=== PATIENT | female | born 1960 | race Caucasian/White ===

== ENCOUNTER 2022-09-30 14:44 | Emergency (ER) | payer OTHER, SELFPAY ==
[2022-09-30 14:49] VITALS: BP 198/86; PULSE 74; RESP 16; TEMP 35.8; O2SAT 99; BMI 32.4
[2022-09-30 15:11] LABS: Add Manual Diff / Slide Review NO; Basophils Absolute Auto 0 /uL (0-100); Basophils Percent Auto 0.2 % (0-2); Eosinophils Absolute Auto 100 /uL (0-450); Eosinophils Percent Auto 1.2 % (2-4); Hematocrit 41.1 % (36-46); Hemoglobin 13.9 g/dL (12.0-16.0); Lymphocytes Absolute Auto 1100 /uL (1100-4500); Mean Corpuscular HGB Conc 33.7 % (30-36); Mean Corpuscular Hemoglobin 30.7 PG (26-34); Mean Corpuscular Volume 91.3 fL (80-100); Monocytes Absolute Auto 400 /uL (0-900); Monocytes Percent Auto 6.1 % (3-14); Neutrophils Absolute Auto 5300 /uL (1500-7000); Neutrophils Percent Auto 76.5 % (50-75); Platelet Count 241 X10^3/uL (150-400); Red Blood Cell Count 4.51 X10^6/uL (4.0-5.2); White Blood Cell Count 6.9 X10^3/uL (4.5-11.0)
[2022-09-30 15:18] LABS: Alanine Aminotransferase 39 IU/L (<35); Albumin 4.3 g/dL (3.5-5.0); Albumin Globulin Ratio 1.2 (1.0-2.8); Alkaline Phosphatase 69 U/L (38-126); Aspartate Aminotransferase 38 IU/L (14-36); BUN Creatinine Ratio 30.2 (6-22); Bilirubin Total 0.5 mg/dL (0.2-1.3); Blood Urea Nitrogen 19 mg/dL (7-17); Calcium 9.4 mg/dL (8.4-10.2); Carbon Dioxide 30 mmol/L (22-32); Chloride 103 mmol/L (98-107); Estimated Glomerular Filt Rate > 60 mL/min (>60); Globulin 3.6 g/dL (1.7-4.1); Glucose 123 mg/dL (80-110); HEMOLYSIS < 15 (0-50); Lipase 101 U/L (23-300); Potassium 3.8 mmol/L (3.4-5.1); Sodium 139 mmol/L (137-145); Total Protein 7.9 g/dL (6.3-8.2)
[2022-09-30 15:24] LABS: Bacteria Urine Moderate (10-30); Mucus Urine 2+ (Negative); RBC Urine 10-30/HPF (0-5/HPF); WBC Urine 10-30/HPF (0-5/HPF)
--- NOTE | 2022-09-30 16:18 | DI.CT.S_ITS ---
PROCEDURE: CT ABDOMEN PELVIS WO CON INDICATIONS: LT renal colic vs ureteral obstruction vs cystitis/pyelo TECHNIQUE: Axial sections were acquired from the lung bases to the pubic symphysis. Coronal and sagittal reformats were performed. For radiation dose reduction, the following was used: automated exposure control, adjustment of mA and/or kV according to patient size. COMPARISON: None. FINDINGS: Image quality: Excellent. Lung bases: Unremarkable. A small hiatal hernia is incidentally noted. Heart: No significant findings. A small pericardial effusion is seen. URINARY: Right Kidney: No angel hydronephrosis is seen. Within the right renal pelvis there is a 9 mm stone measuring 450 Hounsfield units, which is nonobstructing at this time. Additional smaller stones can be seen within the right kidney. Right Ureter: No hydroureter. Left Kidney: Within the left renal pelvis, there is a large 18 mm stone that measures 1100 Hounsfield units, with mild associated hydronephrosis. Additional smaller left-sided kidney stones are seen, including a 6 mm stone that measures 650 Hounsfield units. Left Ureter: No hydroureter. Bladder: Normal wall thickness. No stones. ABDOMEN: Liver: Unremarkable. Gallbladder: Unremarkable. Biliary ducts: Unremarkable. Pancreas: Unremarkable. Spleen: Unremarkable. Adrenal Glands: Unremarkable. Stomach and Bowel: Stomach, small bowel loops, and colon are unremarkable. Colonic diverticulosis is seen, without findings of active diverticulitis. Peritoneum: No abnormal intraperitoneal fluid. No free air. Ventral Wall: No hernia. Abdominal Nodes: No enlarged retroperitoneal or mesenteric lymph nodes. Vessels: Aorta and inferior vena cava are normal in size. PELVIS: Pelvic Organs: The uterus appears normal for age. No adnexal masses are seen. Pelvic Nodes: Unremarkable. Miscellaneous: No inguinal hernias are seen. Bones: Mild dextroconvex scoliotic curvature is seen. Degenerative changes are seen throughout, which are worst involving the lumbar spine. IMPRESSION: There is an 18 mm stone seen within the left renal pelvis, which is believed to be partially obstructing, with mild left-sided hydronephrosis. Nonobstructing bilateral kidney stones are seen, including a 9 mm stone within the right renal pelvis. Additional findings: Small pericardial effusion Small hiatal hernia Diverticulosis, without active diverticulitis Dextroconvex scoliotic curvature Lumbar spine degenerative change Dictated by: Dougie Perkins M.D. on 09/30/2022 at 16:03 Approved by: Dougie Perkins M.D. on 09/30/2022 at 16:06
--- NOTE | 2022-09-30 16:38 | ED.ABDPAIN ---
HPI - Abdominal Pain <DEREK St - Last Filed: 09/30/22 17:35> General Chief Complaint: Abdominal Pain Stated Complaint: severe pain in abd throught lt the side Time Seen by Provider: 09/30/22 16:10 Mode of arrival: Family Vehicle History of Present Illness HPI narrative: This is a 62-year-old female presents to the emergency department complaining of left-sided pelvic and flank pain which has come and gone over the last year but has been persistent. She states over the last 2 days has been worse than usual and she thinks she is noticed blood in her urine. She has a history of kidney stones, states it has been multiple years since she is had 1. Does not have a urologist. She denies fever chills but states that she has not felt great and had worsening pain. Related Data Home Medications Medication Instructions Recorded Confirmed rosuvastatin PO 10/08/22 10/08/22 Previous Rx's Medication Instructions Recorded ciprofloxacin HCl 500 mg tablet 500 mg PO BID 10 days #20 tabs 09/30/22 (Cipro) ibuprofen 600 mg tablet 600 mg PO Q6H PRN fever or pain 09/30/22 #30 tabs Allergies Allergy/AdvReac Type Severity Reaction Status Date / Time No Known Drug Allergies Allergy Verified 10/08/22 13:44 Patient History <DEREK St - Last Filed: 09/30/22 17:35> Family History (Updated 10/08/22 @ 13:50 by Citlalli Estrella LPN) Grandmother Cancer Mother Diabetes mellitus Inflammatory bowel disease Father Hyperlipidemia Hypertension Social History (Updated 10/08/22 @ 13:52 by Citlalli Estrella LPN) marital status: number of children: 0 Smoking Status: Never smoker alcohol intake: never caffeine: Yes Type(s) of exercise: walking and swimming frequency: 1-2 times per week Smoking Status: Never smoker Substance Use Type: does not use Exam <DEREK St - Last Filed: 09/30/22 17:35> Narrative Exam Narrative: Reviewed vitals signs and nursing notes. General: cooperative, comfortable, in no acute distress, well groomed HEENT: symmetrical facial expressions, moist mucous membranes Cardiovascular: regular rate and rhythm, no peripheral edema, warm extremities, hypertensive Respiratory: normal effort, able to speak in complete sentences, without wheezing, stridor, or abnormal breath sounds. No retractions or tachypnea. GI: abdomen soft, nontender to palpation, nondistended, without masses, rebound tenderness or exquisite tenderness with exam. Left inguinal tenderness to palpation no CVAT bilaterally MSK: moves all extremities, neurovascularly intact, no weakness, normal tone Skin: brisk capillary refill, without pallor or erythema Neuro: normal speech and cognition, A&O x3, ambulatory, clear speech Psych: mental status is grossly normal, congruent mood, normal affect, pleasant and cooperative Initial Vital Signs Initial Vital Signs: Vital Signs Temperature 96.4 F L 09/30/22 14:49 Pulse Rate 74 09/30/22 14:49 Respiratory Rate 16 09/30/22 14:49 Blood Pressure 198/86 H 09/30/22 14:49 Pulse Oximetry 99 09/30/22 14:49 Oxygen Delivery Method 09/30/22 14:49 <Mikayla Wynn DO - Last Filed: 10/09/22 03:33> Initial Vital Signs Initial Vital Signs: Vital Signs Temperature 96.4 F L 09/30/22 14:49 Pulse Rate 74 09/30/22 14:49 Respiratory Rate 16 09/30/22 14:49 Blood Pressure 198/86 H 09/30/22 14:49 Pulse Oximetry 99 09/30/22 14:49 Oxygen Delivery Method 09/30/22 14:49 Course <[address]EREK St - Last Filed: 09/30/22 17:35> Orders Ordered: Discontinued Medications Ceftriaxone Sodium 1,000 mg/ (Sodium Chloride) 100 mls @ 200 mls/hr IV NOW ONE Stop: 09/30/22 16:58 Last Infusion: 09/30/22 17:30 Dose: 0 mls/hr Documented By: Admin: 09/30/22 17:04 Dose: 200 mls/hr Documented By: LENIN Ketorolac Tromethamine (Ketorolac 10 Mg Tablet) 10 mg PO NOW ONE Stop: 09/30/22 16:20 Last Admin: 09/30/22 16:59 Dose: 10 mg Documented By: ANTHONY Ondansetron HCl (Ondansetron 4 Mg Odt) 4 mg PO NOW PRN PRN Reason: Nausea And Vomiting Last Admin: 09/30/22 17:00 Dose: 4 mg Documented By: ANTHONY Ondansetron HCl (Ondansetron 4 Mg/2 Ml Inj) 4 mg IV NOW PRN PRN Reason: Nausea And Vomiting Phenazopyridine HCl (Phenazopyridine 100 Mg Tablet) 200 mg PO NOW ONE Stop: 09/30/22 16:20 Last Admin: 09/30/22 16:59 Dose: 200 mg Documented By: ANTHONY Trimethoprim/Sulfamethoxazole (Trimeth/Sulfa 160/800 (Ds) Tablet) 1 tab PO NOW ONE Stop: 09/30/22 16:20 Last Admin: 09/30/22 16:59 Dose: 1 tab Documented By: ANTHONY Vital Signs Vital signs: Vital Signs - 8 hr 09/30/22 14:49 09/30/22 17:06 Temperature 96.4 F L 98 F Pulse Rate 74 84 Respiratory Rate 16 18 Blood Pressure 198/86 H 190/70 H Pulse Oximetry 99 99 Oxygen Delivery Method Room Air <Mikayla Wynn DO - Last Filed: 10/09/22 03:33> Orders Ordered: Discontinued Medications Ceftriaxone Sodium 1,000 mg/ (Sodium Chloride) 100 mls @ 200 mls/hr IV NOW ONE Stop: 09/30/22 16:58 Last Infusion: 09/30/22 17:30 Dose: 0 mls/hr Documented By: Admin: 09/30/22 17:04 Dose: 200 mls/hr Documented By: LENIN Ketorolac Tromethamine (Ketorolac 10 Mg Tablet) 10 mg PO NOW ONE Stop: 09/30/22 16:20 Last Admin: 09/30/22 16:59 Dose: 10 mg Documented By: ANTHONY Ondansetron HCl (Ondansetron 4 Mg Odt) 4 mg PO NOW PRN PRN Reason: Nausea And Vomiting Last Admin: 09/30/22 17:00 Dose: 4 mg Documented By: ANTHONY Ondansetron HCl (Ondansetron 4 Mg/2 Ml Inj) 4 mg IV NOW PRN PRN Reason: Nausea And Vomiting Phenazopyridine HCl (Phenazopyridine 100 Mg Tablet) 200 mg PO NOW ONE Stop: 09/30/22 16:20 Last Admin: 09/30/22 16:59 Dose: 200 mg Documented By: ANTHONY Trimethoprim/Sulfamethoxazole (Trimeth/Sulfa 160/800 (Ds) Tablet) 1 tab PO NOW ONE Stop: 09/30/22 16:20 Last Admin: 09/30/22 16:59 Dose: 1 tab Documented By: ANTHONY Vital Signs Vital signs: Vital Signs - 8 hr 09/30/22 14:49 09/30/22 17:06 Temperature 96.4 F L 98 F Pulse Rate 74 84 Respiratory Rate 16 18 Blood Pressure 198/86 H 190/70 H Pulse Oximetry 99 99 Oxygen Delivery Method Room Air MDM - Abdominal Pain <DEREK St - Last Filed: 09/30/22 17:35> Lab Data 09/30/22 15:00 09/30/22 15:00 Labs: Lab Results 09/30/22 09/30/22 09/30/22 Range/Units 15:00 15:00 15:00 WBC 6.9 (4.5-11.0) X10^3/uL RBC 4.51 (4.0-5.2) X10^6/uL Hgb 13.9 (12.0-16.0) g/dL Hct 41.1 (36-46) % MCV 91.3 (80-100) fL MCH 30.7 (26-34) PG MCHC 33.7 (30-36) % RDW 13.0 (11.6-14.8) % Plt Count 241 (150-400) X10^3/uL Neut % (Auto) 76.5 H (50-75) % Lymph % (Auto) 16.0 L (25-40) % [place] % (Auto) 6.1 (3-14) % Eos % (Auto) 1.2 L (2-4) % Baso % (Auto) 0.2 (0-2) % Neut # (Auto) 5300 (0676-1875) /uL Lymph # (Auto) 1100 (8401-0939) /uL [place] # (Auto) 400 (0-900) /uL Eos # (Auto) 100 (0-450) /uL Baso # (Auto) 0 (0-100) /uL Sodium 139 (137-145) mmol/L Potassium 3.8 (3.4-5.1) mmol/L Chloride 103 (98-107) mmol/L Carbon Dioxide 30 (22-32) mmol/L BUN 19 H (7-17) mg/dL Creatinine 0.63 (0.52-1.04) mg/dL Estimated GFR > 60 (>60) mL/min BUN/Creatinine Ratio 30.2 H (6-22) Glucose 123 H (80-110) mg/dL Calcium 9.4 (8.4-10.2) mg/dL Total Bilirubin 0.5 (0.2-1.3) mg/dL AST 38 H (14-36) IU/L ALT 39 H (<35) IU/L Alkaline Phosphatase 69 (38-126) U/L Total Protein 7.9 (6.3-8.2) g/dL Albumin 4.3 (3.5-5.0) g/dL Globulin 3.6 (1.7-4.1) g/dL Albumin/Globulin Ratio 1.2 (1.0-2.8) Lipase 101 (23-300) U/L Urine RBC 10-30/hpf H (0-5/HPF) Urine WBC 10-30/hpf H (0-5/HPF) Urine Bacteria Moderate (10-30) H (None) Urine Mucus 2+ H (Negative) Point of care testing: Urine Dip Bedside Urine Glucose Negative Bedside Urine Bilirubin - Negative Bedside Urine Ketone - Negative Urine Specific [place] 1.025 Bedside Urine Occult Blood +++ Bedside Urine pH 6.0 Bedside Urine Protein + 30 Bedside Urine Urobilinogen - Negative Bedside Urine Nitrite - Negative Bedside Urine Leukocytes +/- 15 Esterase MDM Narrative Medical decision making narrative: Chief Complaint: Independent historian: Patient Differential diagnoses include but are not limited to: Nephrolithiasis, urinary tract infection related to nephrolithiasis/ureteral stone, obstructive uropathy, acute cystitis, renal colic, colitis I have independently reviewed the patient's vital signs and nursing notes as well as prior records if available. Pertinent lab findings reviewed: UA with RBCs, WBCs, bacteria, leukocyte esterase, lab work significant for a left shift without leukocytosis, BUN is elevated at 19, creatinine 0.63 with a GFR of over 60 no prior lab work to compare to. Pertinent Imaging reviewed: CT abdomen pelvis without contrast showing CT abdomen pelvis without contrast shows an 18 mm stone in the left renal pelvis, mild hydronephrosis and a nonobstructing right renal stone measuring 9 mm in the right renal pelvis. Incidental findings also include small pericardial effusion, hiatal hernia, diverticulosis without diverticulitis, lumbar spine degenerative changes Course of care: I saw and evaluated patient in the waiting room, she denies pain at this time, states that it comes and goes and when it comes on hard it has severe qualities. Her UA is positive for WBCs, bacteria and leukocyte esterase, we will treat for complicated UTI however due to her history of kidney stones will obtain CT KUB prior to dispo CT KUB on my independent evaluation shows evidence of 2 stones renal pelvis, left is greater incised in the right Paged Dr. Villagomez for large ureteral/kidney pelvis stone and left-sided inguinal/flank pain with renal stones. He called back and we discussed the large stone on the left renal pelvis versus proximal ureter and the smaller stone on the right. He understands that patient does not have tachycardia, fever chills, does not have severe pain which is causing nausea vomiting, she remains hypertensive but without tachycardia. CT abdomen pelvis without contrast shows an 18 mm stone in the left renal pelvis, mild hydronephrosis and a nonobstructing right renal stone measuring 9 mm in the right renal pelvis. He agrees with pain control, he will follow-up with patient in the clinic. She was prescribed ciprofloxacin for bacteria, WBCs, leukocyte esterase and RBCs in her urine with renal colic intermittently for the last year showing these are likely chronic stones. Social considerations that may affect disposition: none Questions are addressed and there is agreement with the plan and for follow-up. Patient is appropriate for outpatient management. MIPS: This encounter doesn't have any diagnosis' associated with MIPS criteria. <Mikayla Wynn, DO - Last Filed: 10/09/22 03:33> Lab Data Labs: Lab Results 09/30/22 09/30/22 09/30/22 Range/Units 15:00 15:00 15:00 WBC 6.9 (4.5-11.0) X10^3/uL RBC 4.51 (4.0-5.2) X10^6/uL Hgb 13.9 (12.0-16.0) g/dL Hct 41.1 (36-46) % MCV 91.3 (80-100) fL MCH 30.7 (26-34) PG MCHC 33.7 (30-36) % RDW 13.0 (11.6-14.8) % Plt Count 241 (150-400) X10^3/uL Neut % (Auto) 76.5 H (50-75) % Lymph % (Auto) 16.0 L (25-40) % [place] % (Auto) 6.1 (3-14) % Eos % (Auto) 1.2 L (2-4) % Baso % (Auto) 0.2 (0-2) % Neut # (Auto) 5300 (4704-9181) /uL Lymph # (Auto) 1100 (5683-9089) /uL [place] # (Auto) 400 (0-900) /uL Eos # (Auto) 100 (0-450) /uL Baso # (Auto) 0 (0-100) /uL Sodium 139 (137-145) mmol/L Potassium 3.8 (3.4-5.1) mmol/L Chloride 103 (98-107) mmol/L Carbon Dioxide 30 (22-32) mmol/L BUN 19 H (7-17) mg/dL Creatinine 0.63 (0.52-1.04) mg/dL Estimated GFR > 60 (>60) mL/min BUN/Creatinine Ratio 30.2 H (6-22) Glucose 123 H (80-110) mg/dL Calcium 9.4 (8.4-10.2) mg/dL Total Bilirubin 0.5 (0.2-1.3) mg/dL AST 38 H (14-36) IU/L ALT 39 H (<35) IU/L Alkaline Phosphatase 69 (38-126) U/L Total Protein 7.9 (6.3-8.2) g/dL Albumin 4.3 (3.5-5.0) g/dL Globulin 3.6 (1.7-4.1) g/dL Albumin/Globulin Ratio 1.2 (1.0-2.8) Lipase 101 (23-300) U/L Urine RBC 10-30/hpf H (0-5/HPF) Urine WBC 10-30/hpf H (0-5/HPF) Urine Bacteria Moderate (10-30) H (None) Urine Mucus 2+ H (Negative) Point of care testing: Urine Dip Bedside Urine Glucose Negative Bedside Urine Bilirubin - Negative Bedside Urine Ketone - Negative Urine Specific [place] 1.025 Bedside Urine Occult Blood +++ Bedside Urine pH 6.0 Bedside Urine Protein + 30 Bedside Urine Urobilinogen - Negative Bedside Urine Nitrite - Negative Bedside Urine Leukocytes +/- 15 Esterase Discharge Plan Departure Patient Disposition: Home Clinical Impression: Calculus of renal pelvis, Complicated urinary tract infection Hypertension Qualifiers: Hypertension type: unspecified Qualified Code(s): I10 - Essential (primary) hypertension Instructions: Urinary Tract Infection, DI for Kidney Stones Activity Restrictions/Additional Instructions: *You have been diagnosed with large stone in the left renal pelvis and a smaller stone in the right renal pelvis without evidence of obstruction or need for emergent treatment however pain control as a priority. Dr. Villagomez said that he be happy to see you as an outpatient, please call and make an appointment. You received your first dose of an antibiotic here in the emergency department. Please start the Ciprofloxacin tomorrow. You have 2 large stones, an 18 mm stone in the left renal pelvis, partially obstructing with mild left-sided hydronephrosis and a smaller stone measuring 9 mm in the right renal pelvis. Since you do not have any stones technically in the ureter, no indication for Flomax. Please use ibuprofen every 6 hours as needed with food and water to decrease inflammation and help with pain. Please stay on this as a schedule as it will help you with your inflammation. Take your antibiotic with food as well as both of these can irritate the stomach. Please schedule an appointment with Dr. Villagomez, I have called him and he knows about you and will see you in clinic as soon as you can get an appointment. Continue to stay hydrated, come back if you feel worse, have fever and chills, worsening pain. Please take the MiraLax as this will help with the pain, use pain pills as needed for pain the ibuprofen and Tylenol does not controlx *What to do: *Please continue to take your regular medications as directed. [x ] New medication prescriptions sent to your pharmacy: [[facility] ] [ ] New medication written as a paper prescription [ ] No new medications given *Please follow up with your primary care provider in 2-3 days, call for an appointment. Let them know you were seen in the Emergency Department and that we asked that you be seen for follow-up. We will electronically transmit a record of today's note if your PCP is in our system *If you do not have a primary care provider please contact [phone] to establish care with one of the [facility] primary care providers. *Return to Emergency Department if you should have any new, worsening, or concerning symptoms, such as [fever greater than 101F, chills, worsening pain, persistent vomiting or other bothersome symptoms]. Prescriptions: New ciprofloxacin HCl [Cipro] 500 mg tablet 500 mg PO BID 10 Days Qty: 20 0RF ibuprofen 600 mg tablet 600 mg PO Q6H PRN (Reason: fever or pain) Qty: 30 0RF No Action rosuvastatin PO Referrals: Ezequiel Villagomez MD [Physician] - Stand Alone Forms: Patient Portal/API <Mikayla Wynn DO - Last Filed: 10/09/22 03:33> Cosign ED Attending Cosignature Attestation: I was immediately available in the department for consultation. Documentation has been reviewed.
[2022-09-30] MEDS: TRIMETH/SULFA 160/800 (DS) TABLET 1 TAB PO (16:59)
[2022-09-30] MEDS: PHENAZOPYRIDINE 100 MG TABLET 200 MG PO (16:59)
[2022-09-30] MEDS: KETOROLAC 10 MG TABLET PO (16:59)
[2022-09-30] MEDS: ONDANSETRON 4 MG ODT PO (17:00)
[2022-09-30] MEDS: cefTRIAXone 1,000 MG in SODIUM CHLORIDE 0.9% 100 ML 200 MG IV (17:04)
[2022-09-30 17:06] VITALS: BP 190/70; PULSE 84; RESP 18; TEMP 36.6; O2SAT 99
--- NOTE | 2022-10-01 13:02 | PC.NURSE ---
Dr. Villagomez called, requested provider summary be faxed to him. Faxed to [phone].
== END 2022-09-30 17:34 | disposition home or self-care (01) ==
PROVIDERS: Emergency Medicine; Emergency Provider Nurse Practitioner Critical Care Medicine
DX: N20.0 Calculus of kidney (principal); N39.0 Urinary tract infection, site not specified; I10 Essential (primary) hypertension; Z87.442 Personal history of urinary calculi
CPT/HCPCS: 36415; 74176; 80053; 81003; 81015; 83690; 85025; 87086; 96365; 99284; J0696

== ENCOUNTER → 2022-10-08 14:39 | Outpatient (CLI) | payer OTHER, SELFPAY ==
--- NOTE | 2022-10-08 14:42 | DI.RAD.S_ITS ---
PROCEDURE: XR KUB INDICATIONS: Kidney stone TECHNIQUE: One view of the abdomen acquired. COMPARISON: CT 09/30/2022 FINDINGS: Surgical changes and devices: None. Bowel: Bowel gas pattern is normal. Soft tissues: 2.0 cm left renal stone projects over the left renal pelvis, similar in location compared with prior CT. Additional bilateral smaller stones present. Visualized solid organ contours appear normal in size. Bones: No suspicious bony lesions. Convex right scoliosis of the lumbar spine. IMPRESSION: Similar position of the 2 cm left renal stone projecting over the renal pelvis. Dictated by: Naif Youssef M.D. on 10/08/2022 at 15:56 Approved by: Naif Youssef M.D. on 10/08/2022 at 15:58
== END ==
PROVIDERS: PCP Student in an Organized Health Care Education/Training Program; Referring Provider Urology; Visit Provider Urology
DX: N20.0 Calculus of kidney (principal); R31.29 Other microscopic hematuria; Z87.440 Personal history of urinary (tract) infections; Z87.898 Personal history of other specified conditions
CPT/HCPCS: 74018; 81002

== ENCOUNTER 2025-05-16 00:01 | Emergency (ER) | payer MEDICARE, SELFPAY ==
[2025-05-16 00:27] VITALS: BP 190/88; PULSE 85; RESP 18; TEMP 36.5; O2SAT 95; BMI 33.6
--- NOTE | 2025-05-16 00:53 | ED_ITS ---
HPI - Female Genitourinary General Chief complaint: Urogenital-Female Stated complaint: Poss UTI/kidney infection, blood in urine Time Seen by Provider: 05/16/25 00:14 Source: patient Mode of arrival: Family Vehicle History of Present Illness HPI Narrative: 64-year-old female with history of previous kidney stones, urology stone removal interventions 2.5 years ago in [place], had typical left anterior lower quadrant discomfort last week, felt that she was probably passing another stone, was not clinically evaluated anywhere, seemed to feel better, through the evening last few hours she has had slight burning with urination, no fevers or chills, no nausea or vomiting, with gross hematuria symptoms. No injury or trauma. No use of blood thinner medications. Related Data Home Medications ?Medication ?Instructions ?Recorded ?Confirmed rosuvastatin PO 10/08/22 10/08/22 Previous Rx's ?Medication ?Instructions ?Recorded ibuprofen 600 mg tablet 600 mg PO Q6H PRN fever or p ain 09/30/22 #30 tabs cefdinir 300 mg capsule 300 mg PO BID 10 days #20 ca ps 05/16/25 doxycycline hyclate 100 mg tablet 100 mg PO BID #20 ta bs 05/16/25 Allergies Allergy/AdvReac Type Severity Reaction Status Date / Time No Known Drug Allergies Allergy Verified 10/08/22 13:44 Patient History Medical History (Updated 05/16/25 @ 03:43 by Alton Yeager MD) History of abdominal pain History of urinary tract infection Family History Grandmother Cancer Mother Diabetes mellitus Inflammatory bowel disease Father Hyperlipidemia Hypertension Exam Narrative Exam Narrative: GENERAL: Well-developed patient, in mild distress. HEAD: Atraumatic. Normocephalic. EYES: Pupils equal round and reactive. Extraocular motions intact. No scleral icterus. No injection or drainage. ENT: Nose without bleeding, purulent drainage. Throat without erythema, tonsillar hypertrophy or exudate. Airway patent. NECK: Trachea midline. Moves neck well. CARDIOVASCULAR: Regular rate and rhythm without murmurs, gallops, or rubs. RESPIRATORY: Clear to auscultation. Breath sounds equal bilaterally. No wheezes, rales, or rhonchi. GASTROINTESTINAL: Abdomen soft, non-tender, nondistended. EXTREMITIES: No edema or joint tenderness. BACK: Nontender without deformity or crepitance. No flank tenderness. NEURO: AOx3. Motor functions grossly nonfocal. SKIN: No rash or erythema of visible areas Initial Vital Signs Initial Vital Signs: Vital Signs Temperature 97.7 F 05/16/25 00:27 Pulse Rate 85 05/16/25 00:27 Respiratory Rate 18 05/16/25 00:27 Blood Pressure 190/88 H 05/16/25 00:27 Pulse Oximetry 95 05/16/25 00:27 Oxygen Delivery Method Room Air 05/16/25 00:27 Course Orders Ordered: Discontinued Medications Doxycycline Hyclate (Doxycycline Hyclate 100 Mg Tablet) 100 mg PO NOW ONE Stop: 05/16/25 03:32 Last Admin: 05/16/25 03:43 Dose: 100 mg Documented By: Ceftriaxone Sodium 1,000 mg/ (Sodium Chloride) 100 mls @ 200 mls/hr IV NOW ONE Stop: 05/16/25 02:17 Last Infusion: 05/16/25 03:21 Dose: Infused Documented By: Admin: 05/16/25 03:00 Dose: 200 mls/hr Documented By: Ceftriaxone Sodium 1,000 mg/ (Sodium Chloride) 100 mls @ 200 mls/hr IV NOW ONE Stop: 05/16/25 03:32 Last Admin: 05/16/25 03:39 Dose: Not Given Documented By: Vital Signs Vital signs: Vital Signs - 8 hr 05/16/25 00:27 Temperature 97.7 F Pulse Rate 85 Respiratory Rate 18 Blood Pressure 190/88 H Pulse Oximetry 95 Oxygen Delivery Method Room Air MDM - Female Genitourinary Lab Data Attestation: I reviewed the patient's lab results. Lab results narrative: White blood cell count 6000, hemoglobin 14, platelets adequate. Urinalysis shows red cells, nitrite negative, some bacteria, 1-5 white blood cells/HPF, urine cultured. 05/16/25 02:40 Labs: Lab Results 05/16/25 05/16/25 Range/Units 01:30 02:40 WBC 6.0 (4.5-11.0) X10^3/uL RBC 4.60 (4.0-5.2) X10^6/uL Hgb 14.0 (12.0-16.0) g/dL Hct 42.4 (36-46) % MCV 92.1 (80-100) fL MCH 30.4 (26-34) PG MCHC 32.9 (30-36) % RDW 13.6 (11.6-14.8) % Plt Count 251 (150-400) X10^3/uL Neut % (Auto) 60.3 (50-75) % Lymph % (Auto) 28.7 (25-40) % [place] % (Auto) 8.2 (3-14) % Eos % (Auto) 2.2 (2-4) % Baso % (Auto) 0.6 (0-2) % Neut # (Auto) 3600 (1095-0627) /uL Lymph # (Auto) 1700 (7445-2535) /uL [place] # (Auto) 500 (0-900) /uL Eos # (Auto) 100 (0-450) /uL Baso # (Auto) 0 (0-100) /uL PT 10.4 (9.4-12.5) SECONDS INR 0.9 (0.9-1.3) Urine Color Red Urine Appearance Turbid Urine pH 6.0 (4.5-8.0) Ur Specific [place] 1.020 (1.000-1.035) Urine Protein 1+ H (Negative) Urine Glucose (UA) Negative (Negative) g/dL Urine Ketones Negative (NEGATIVE) Urine Occult Blood 3+ H (Negative) Urine Nitrate Negative (Negative) Urine Bilirubin Negative (NEGATIVE) Urine Urobilinogen 0.2 (0.2) E.U./dL Ur Leukocyte Esterase Negative (NEGATIVE) Urine RBC >100/hpf H (0-5/HPF) Urine WBC 1-5/hpf (0-5/HPF) Ur Squamous Epith Cells 0-1 /hpf (0-5/HPF) Urine Bacteria Few (2-10) H (None) Ur Culture Indicated? Specimen cultured Vol Urine Centrifuged 10ml (spun) MDM Narrative Medical decision making narrative: 64-year-old female with dysuria, history of kidney stones, gross hematuria symptoms, last week had left lower quadrant typical symptoms of stone passage for which she had not seek care. Now having gross hematuria symptoms worsening through yesterday. Afebrile, sirs screen negative. No anterior abdominal tenderness, no flank tenderness. We discussed options, urinalysis only, urinalysis labs, urinalysis labs imaging. She would like to have urinalysis and laboratory studies and CT abdomen and pelvis imaging. Studies ordered. Declines pain medications when offered. 0330, CT abdomen and pelvis noncontrast. Impressions: ?Bilateral renal stones including a stone in the left pole calyx and dilatation of the shaina below this. Right lower lobe infiltrate versus pneumonitis. Trace pericardial effusion of unclear significance.? See tele radiology report. We will initiate treatment for possible pneumonia changes, which cover UTI, urine culture pending. IV ceftriaxone, oral doxycycline. Unclear significance of the delayed dictation calcs below left lower pole stone, if this represents obstruction that requires any interventions. We will consult Urology. 0340, case discussed with [facility] urology Dr. Walsh who was on- call, does not believe that CT finding of left pole calyx in association with the stone requires any urgent intervention, agrees with treatment as an outpatient for now, local urology follow up advised. Patient made aware of recommendations. We will send prescription for cefdinir antibiotic and oral doxycycline antibiotic for community-acquired pneumonia coverage, which should provide urinary tract infection coverage if urine culture growth is positive. Patient expressed understanding. Agrees with this plan. Discharge Plan Departure Patient Disposition: Home Clinical Impression: Gross hematuria, Urinary tract infection, Pneumonia Activity Restrictions/Additional Instructions: Bloody appearing urine, recent left lower quadrant abdominal pain that seemed to be resolved, history of kidney stones felt similar. Urinalysis with blood and minimal bacteria, urine culture was done by protocol. CT abdomen and pelvis showed presence of bilateral kidney stones, small stone in the left lower pole of the kidney with associated dilatation of the adjacent calyx of unclear significance. No stones mentioned in either ureter. Case was discussed with [facility] urology on-call Dr. Walsh who did not feel this warranted any urgent intervention, agreed with treatment with antibiotics for possible pneumonia incidentally found, that should provide urine coverage as well. IV ceftriaxone and oral doxycycline antibiotics initiated in the emergency department. Prescriptions for cefdinir and oral doxycycline antibiotics prescription sent to your pharmacy. Take antibiotics as directed. Take [id number] ibuprofen as needed for pain control. Recheck with local urologist early next week. Contact information given for clinic. Return to this/nearest emergency department for any change worsening symptoms or any concerns prior. Prescriptions: New cefdinir 300 mg capsule 300 mg PO BID 10 Days Qty: 20 0RF doxycycline hyclate 100 mg tablet 100 mg PO BID Qty: 20 0RF No Action ibuprofen 600 mg tablet 600 mg PO Q6H PRN (Reason: fever or pain) Qty: 30 0RF rosuvastatin PO Referrals: Duane Fulton PA-C [Primary Care Provider, Medical] Stand Alone Forms: Patient Portal/API
[2025-05-16 02:09] LABS: Appearance Urine UA TURBID; Bilirubin Urine UA NEGATIVE (NEGATIVE); Color Urine UA RED; Glucose Urine UA NEGATIVE (Negative); Ketones Urine UA NEGATIVE (NEGATIVE); Leukocyte Esterase Urine UA NEGATIVE (NEGATIVE); Nitrite Urine UA NEGATIVE (Negative); Occult Blood Urine UA 3+ (Negative); Protein Urine UA 1+ (Negative); Specific Gravity Urine UA 1.020 (1.000-1.035); Urobilinogen Urine UA 0.2 E.U./dL (0.2)
[2025-05-16 02:10] LABS: pH Urine UA 6.0 (4.5-8.0)
[2025-05-16 02:13] LABS: Culture Indicated Urine Specimen Cultured
--- NOTE | 2025-05-16 02:13 | DI.CT.S_ITS ---
PROCEDURE: CT ABDOMEN PELVIS WO CON INDICATIONS: hematuria, hx stones, no abd/flank pain TECHNIQUE: Axial sections were acquired from the lung bases to the pubic symphysis. Coronal and sagittal reformats were performed. For radiation dose reduction, the following was used: automated exposure control, adjustment of mA and/or kV according to patient size. COMPARISON: [facility], CT, CT ABDOMEN PELVIS WO CON, 09/30/2022, 16:20. FINDINGS: Image quality: Diagnostic. Lower Chest: Right lower lobe patchy consolidative opacities. Small hiatal hernia. Small pericardial effusion. URINARY: Right Kidney: Punctate nonobstructing calcifications at the inferior pole. No hydronephrosis. Right Ureter: No hydroureter. Left Kidney: There is a 6 millimeter stone within the left lower pole with dilatation of the adjacent calyx. Few additional punctate nonobstructing stones. Left Ureter: No hydroureter. Bladder: Decompressed, limiting evaluation. No stones. ABDOMEN: Liver: No contour-deforming solid mass. Gallbladder: No radiopaque gallstones or wall thickening. Biliary ducts: No biliary dilation. Pancreas: No ductal dilation. Spleen: Size is within normal limits. Adrenal Glands: No adrenal nodules. Stomach and Bowel: Normal colonic caliber, without significant wall thickening. Diverticulosis without evidence of acute diverticulitis. Peritoneum: No abnormal intraperitoneal fluid. No free air. Ventral Wall: No hernia. Abdominal Nodes: No enlarged retroperitoneal or mesenteric lymph nodes. Vessels: Aorta and inferior vena cava are normal in size. Atherosclerotic vascular calcifications. PELVIS: Pelvic Organs: Unremarkable. Pelvic Nodes: Unremarkable. Miscellaneous: No inguinal hernias are seen. Bones: Multilevel degenerative changes of the spine. IMPRESSION: 1. There is a 6 millimeter stone in the left lower pole with dilatation of the adjacent calyx. 2. Additional bilateral punctate nonobstructing renal stones. 3. Right lower lobe infiltrate concerning for pneumonia. Findings are concordant with preliminary interpretation provided by [facility]. Dictated by: Will Helms M.D. on 05/16/2025 at 7:18 Approved by: Will Helms M.D. on 05/16/2025 at 7:23
[2025-05-16 02:52] LABS: Add Manual Diff / Slide Review NO; Hematocrit 42.4 % (36-46); Hemoglobin 14.0 g/dL (12.0-16.0); Lymphocytes Absolute Auto 1700 /uL (1100-4500); Mean Corpuscular HGB Conc 32.9 % (30-36); Mean Corpuscular Hemoglobin 30.4 PG (26-34); Mean Corpuscular Volume 92.1 fL (80-100); Platelet Count 251 X10^3/uL (150-400)
[2025-05-16 03:38] LABS: INR 0.9 (0.9-1.3); Prothrombin Time 10.4 SECONDS (9.4-12.5)
[2025-05-16] MEDS: DOXYCYCLINE HYCLATE 100 MG TABLET PO (03:43)
[2025-05-16 04:10] VITALS: BP 164/90; PULSE 96; RESP 16; O2SAT 97
== END 2025-05-16 04:11 | disposition home or self-care (01) ==
PROVIDERS: Emergency Provider Emergency Medicine; PCP Student in an Organized Health Care Education/Training Program
DX: R31.0 Gross hematuria (principal); N39.0 Urinary tract infection, site not specified; J18.9 Pneumonia, unspecified organism; Z87.442 Personal history of urinary calculi
CPT/HCPCS: 36415; 74176; 81001; 85025; 85610; 87086; 96365; 99284; J0696; J7050